=== PATIENT | male | born 1950 | race Caucasian/White ===

== ENCOUNTER → 2023-11-27 13:38 | Outpatient (BNVA) | payer OTHER, SELFPAY | PROVIDERS: Referring Provider Internal Medicine; Visit Provider Surgery | DX: Z12.11 Encounter for screening for malignant neoplasm of colon (principal) | CPT/HCPCS: 99203 ==

== ENCOUNTER 2025-05-26 11:53 | Outpatient (CLI) | payer OTHER, SELFPAY ==
--- NOTE | 2025-05-26 12:02 | XR_ITS ---
WS: [id number] XR cervical spine min 6V [id number] REASON FOR EXAM: SPONDYLOSIS OF LUMBOSACRAL REGION WITHOUT MYELOPATHY, RADICU FINDINGS: Straightening of the normal lordosis of the cervical. Mild anterior subluxation of the cervical spine. This appears to be due to mild anterior wedging of the T1 vertebrae with 3 mm of anterolisthesis of C7 on T1. No significant compression deformity or focal bone lesion. Mild narrowing of the disc spaces at C4-C5 and C5-C6. Moderate posterior and anterior osteophytosis C4-C6. 2 to 3 mm of anterolisthesis of C5 in relation to C6. Cervical alignment stable in flexion and extension. Uncinate osteophytosis producing moderate impingement on the neural foramina on the right C3-C6. Similar findings on the left. Moderate degenerative changes in the facet joints C2-C6 most notably on the left. XR/XR cervical spine min 6V [id number] IMPRESSION: Degenerative spondylosis of the cervical spine as above.
--- NOTE | 2025-05-26 12:05 | XR_ITS ---
WS: [id number] XR thoracic spine 2V [id number] REASON FOR EXAM: SPONDYLOSIS OF LUMBOSACRAL REGION WITHOUT MYELOPATHY OR RADI FINDINGS: Mild levoscoliosis of the thoracic spine. Normal kyphosis. Mild biconcave, chronic, compression deformities of the thoracic vertebrae in the mid and lower thoracic spine T4-T12. Thoracic disc spaces relatively intact with moderate osteophytosis from T4-T12. XR/XR thoracic spine 2V [id number] IMPRESSION: Mild scoliosis and moderate degenerative spondylosis of the thoracic spine as a ravi.
== END 2025-05-26 11:54 | disposition home or self-care (01) ==
LOC: RAD 11:56
PROVIDERS: PCP Family Medicine; Visit Provider Student in an Organized Health Care Education/Training Program
DX: M47.817 Spondylosis without myelopathy or radiculopathy, lumbosacral region (principal)
CPT/HCPCS: 72052; 72070

== ENCOUNTER 2025-07-20 13:30 | Outpatient (CLI) | payer OTHER, SELFPAY ==
--- NOTE | 2025-07-20 13:35 | CTR_ITS ---
PROCEDURE INFORMATION: Exam: CT Lumbar Spine Without Contrast Exam date and time: 07/20/2025 1:48 PM Age: 75 years old Clinical indication: Low back pain; Prior surgery; Surgery date: 6+ months; Surgery type: Back x 3; HX of prostate cancer; Additional info: Lumbosacral radiculopathy TECHNIQUE: Imaging protocol: Computed tomography of the lumbar spine without contrast. Radiation optimization: All CT scans at this facility use at least one of these dose optimization techniques: automated exposure control; mA and/or kV adjustment per patient size (includes targeted exams where dose is matched to clinical indication); or iterative reconstruction. COMPARISON: CR XR thoracic spine 2V [id number] 05/26/2025 12:14 PM RADIATION DOSE METRICS: Total DLP (mGy-cm): 488.47 FINDINGS: Bones/joints: There is a 6 degree levoconvex curvature of the lumbar spine centered at L4. Vertebral body heights are preserved. The bones are osteopenic. There is a slight anterior positioning of L2 relative to L3 measuring 1-2 mm. Spondylosis is noted with disc osteophyte, bulge, uncovertebral spurring and facet arthropathy mainly at the L4-L5 and L5-S1 levels where there is mild canal narrowing and moderate neural foraminal narrowing. Soft tissues: Unremarkable. CT/CT lumbar spine wo con* [id number] IMPRESSION: Lumbar spondylosis, well-healed levoconvex curvature.
== END 2025-07-20 13:31 | disposition home or self-care (01) ==
LOC: RAD 13:32
PROVIDERS: PCP Family Medicine; Visit Provider Student in an Organized Health Care Education/Training Program
DX: M54.17 Radiculopathy, lumbosacral region (principal)
CPT/HCPCS: 72131